=== PATIENT | male | born 1955 | race Caucasian/White ===

== ENCOUNTER 2018-11-14 11:17 | Outpatient (REF) | payer OTHER, SELFPAY ==
[2018-11-14 21:00] LABS: Anion Gap 10.2 mmol/L (3-11); BUN 17 mg/dL (7-18); CO2 25.8 mmol/L (21.0-32.0); CREATININE 0.89 mg/dL (0.70-1.30); Calcium 9.1 mg/dL (8.5-10.1); Chloride 103 mmol/L (98-107); Glucose 121 mg/dL (70-100); Potassium 4.8 mmol/L (3.5-5.1); Sodium 139 mmol/L (136-145)
== END 2018-11-14 11:37 ==
LOC: NCHCN 11:17
PROVIDERS: PCP Family Medicine; Visit Provider Specialist/Technologist Athletic Trainer
DX: I10 Essential (primary) hypertension (principal); F17.210 Nicotine dependence, cigarettes, uncomplicated; F10.99 Alcohol use, unspecified with unspecified alcohol-induced disorder
CPT/HCPCS: 80048

== ENCOUNTER 2020-01-23 12:41 | Outpatient (REF) | payer OTHER, SELFPAY ==
[2020-01-23 19:07] LABS: Anion Gap 7.2 mmol/L (3-11); BUN 24 mg/dL (7-18); CO2 26.8 mmol/L (21.0-32.0); CREATININE 0.96 mg/dL (0.70-1.30); Chloride 101 mmol/L (98-107); Glucose 131 mg/dL (74-106); Potassium 4.5 mmol/L (3.5-5.1); Sodium 135 mmol/L (136-145)
[2020-01-23 19:28] LABS: Hemoglobin A1C 5.9 % (3.8-5.6)
== END 2020-01-23 13:01 ==
LOC: NCHCN 12:41
PROVIDERS: PCP Family Medicine; Visit Provider Nurse Practitioner Family
DX: R73.03 Prediabetes (principal); I10 Essential (primary) hypertension; Z00.00 Encounter for general adult medical examination without abnormal findings
CPT/HCPCS: 80048; 83036

== ENCOUNTER 2023-05-20 05:13 | Emergency (ER) | payer MEDICARE, SELFPAY ==
[2023-05-20] VITALS (29 sets, daily range): BP systolic 128–177; BP diastolic 53–110; PULSE 69–98; RESP 8–31; TEMP 37; O2SAT 94–100
--- NOTE | 2023-05-20 05:00 | RT.EKG_ITS ---
APPROVED REPORT Exam: Resting ECG Reason for Exam: chest pain Patient Location: E HR:89 bpm ECG Measurements Heart Rate 89 AXIS NV 166 P 68 QRSd 78 QRS 59 QT 361 T 79 QTc 439 Conclusion Sinus rhythm...normal P axis, V-rate 60- 99 Physician: no stemi
--- NOTE | 2023-05-20 05:15 | DI.RAD_ITS ---
Exam(s) XR PORTABLE CHEST AP EXAM: XR PORTABLE CHEST AP CLINICAL HISTORY: chest discomfort TECHNIQUE: 2D digital imaging was performed of the chest. Two images were obtained. AP views were obtained. COMPARISON: No exams were available for comparison FINDINGS: MEDIASTINUM: Normal. HEART: Normal. PULMONARY VASCULATURE: Normal. LUNGS: Clear. PLEURAL SPACE: No pleural effusion or pneumothorax. BONE:Within normal limits for the patient's age. OTHER FINDINGS:Normal. IMPRESSION: No acute pulmonary findings. DATA REPOSITORY: RADIATION DOSE DELIVERED:
--- NOTE | 2023-05-20 05:26 | W.ED.GENAD ---
Discharge Plan Discharge Details Chief Complaint: Chest Pain Primary Care Provider: Sherice Hogan V ED Provider: Mike Velasquez Home Meds and New Rx's Prescriptions: No Action lisinopril 10 MG tablet 1 tab PO DAILY Medical Decision Making This is a 67-year-old male with a past medical history of hypertension, who smokes a pack per day for the last 50 years, with no known other medical history however he does not go see the doctor often, and he does not currently take his antihypertensive medications who presents today via EMS for evaluation of chest pain. Patient states that last night his chest and back felt a little achy, then at 1:30 AM he woke up and he had notable pain and pressure and heaviness in his chest and back that radiated to his right shoulder. It was nonexertional. No pleuritic component. No vomiting or diarrhea or headache. No tearing or ripping sensation. Pain was described as a 6 out of 10. He has never had symptoms like this before. He denies any previous cardiac etiologies. His father did have heart disease to his knowledge. No other complaints at this time. No other modifying factors. Exam demonstrates well-appearing male, no significant abnormalities. EKG shows no evidence of STEMI. Differential includes unstable angina, PE less likely. Dissection of concern but less likely. Pulses equal. Will evaluate for these concerning etiologies, given 1 nitroglycerin and aspirin, monitor closely and reassess. 7:33 AM Chest pain has resolved after breathing treatment. There was no change with nitroglycerin. This does raise a differential potential reactive airway disease. Patient feels well at this time. Initial work-up is normal, initial EKG stable, troponin normal, D-dimer normal, chest x-ray negative for acute process. Symptoms at this time clinically inconsistent for PE, dissection, or severe ACS. Pending repeat troponin. Patient will be signed out to my colleague Dr. Jeffery Cho for follow-up on repeat Trop and reassessment. proBNP is normal suggesting no evidence of heart strain from massive PE or CHF. FINDINGS: Lungs: Unremarkable. No consolidation. Pleural spaces: Unremarkable. No pleural effusion. No pneumothorax. Heart/Mediastinum: Unremarkable. No cardiomegaly. Bones/joints: Unremarkable. IMPRESSION: No acute findings. Thank you for allowing us to participate in the care of your patient. Dictated and Authenticated by: Ezequiel Neal MD 05/20/2023 6:50 AM Eastern Time ([place] & [place]) HPI General Date/Time Provider Initiated Documentation: 05/20/23 05:20. HPI Narrative: This is a 67-year-old male with a past medical history of hypertension, who smokes a pack per day for the last 50 years, with no known other medical history however he does not go see the doctor often, and he does not currently take his antihypertensive medications who presents today via EMS for evaluation of chest pain. Patient states that last night his chest and back felt a little achy, then at 1:30 AM he woke up and he had notable pain and pressure and heaviness in his chest and back that radiated to his right shoulder. It was nonexertional. No pleuritic component. No vomiting or diarrhea or headache. No tearing or ripping sensation. Pain was described as a 6 out of 10. He has never had symptoms like this before. He denies any previous cardiac etiologies. His father did have heart disease to his knowledge. No other complaints at this time. No other modifying factors. Related Data Home Medications Medication Instructions Recorded Confirmed lisinopril 10 mg tablet 1 tab PO DAILY 03/20/15 05/20/23 Allergies Allergy/AdvReac Type Severity Reaction Status Date / Time No Known Allergies Allergy Unverified 05/20/23 06:02 General Stated Complaint: Chest Pain LILIBETH: 2 Review of Systems All systems reviewed & are unremarkable except as noted in HPI and below [facility] Social History Smoking/Tobacco Use Status: Current every day Smoking risk assessment performed?: Yes Drug use: Never Exam Narrative Exam Narrative: 1.Const: Well-nourished, Well-developed, appearing stated age 2.Eyes: PERRL, no conjunctival injection, and symmetrical lids. 3.ENT: Atraumatic external nose and ears. Moist MM. Neck: Symmetric, trachea midline, No thyromegaly. 4.CVS: +S1/S2, No murmurs or gallops. Peripheral pulses 2+ and equal in all extremities. Brisk capillary refill in all extremities. 5.RESP: Unlabored respiratory effort. Clear to auscultation bilaterally. No wheezes rales or rhonchi 6.GI: Soft, Nontender/Nondistended, No hepatosplenomegaly. No guarding or rebound. 7.MSK: Normocephalic/Atraumatic, Extremities w/o deformity or ttp No cyanosis or clubbing, Normal movement of all extremities 8.Skin: Warm, Dry. No rashes or lesions. 9.Neuro: straddle bug driver II-XII grossly intact. Sensation grossly intact, no focal neurologic deficits. 10.Psych: (AAO) x3. Appropriate mood and affect Course Vital Signs Vital signs: Vital Signs Temperature 37.0 C 05/20/23 05:15 Pulse 98 H 05/20/23 05:15 Respiratory Rate 16 05/20/23 05:15 Blood Pressure 177/73 H 05/20/23 05:15 Temperature 37.0 C 05/20/23 05:15 Pulse 98 H 05/20/23 05:15 Respiratory Rate 16 05/20/23 05:15 Respiratory Effort Normal 05/20/23 05:15 Blood Pressure 177/73 H 05/20/23 05:15 Blood Pressure Position Supine 05/20/23 05:15 Pain Level 6 05/20/23 05:15
[2023-05-20 05:31] LABS: Abs Immature Grans 0.05 10^3/uL (0.0-0.06); Absolute Basophil Count 0.04 10^3/uL (0.0-0.2); Absolute Eosinophil Count 0.02 10^3/uL (0.0-0.7); Absolute Lymphocyte Count 0.92 10^3/uL (1.2-3.4); Absolute Monocyte Count 1.35 10^3/uL (0.1-0.8); Absolute Neutrophil Count 8.74 10^3/uL (1.2-6.7); Basophils % 0.4; Eosinophils % 0.2; HCT 49.1 % (40.0-50.0); Immature Grans % 0.4; Lymphocytes % 8.3; MCH 32.3 pg (27.0-33.0); MCHC 34.6 % (32.0-36.0); MCV 93 fL (80-95); MPV 9.3 fL (8.0-11.0); Monocytes % 12.1; Neutrophils % 78.6; Platelet Count 216 10^3/uL (130-400); RBC 5.26 10^6/uL (4.36-5.78); RDW 12.8 % (11.8-14.1); RDW-SD 43.9 fL; WBC 11.12 10^3/uL (4.4-10.8)
[2023-05-20] MEDS: Aspirin 81 MG CHEW 324 MG CH (05:32)
[2023-05-20] MEDS: nitroGLYcerin 0.4 MG TAB SL (05:32)
[2023-05-20] MEDS: Albuterol/Ipratropium 3 ML UPD VIAL UPD (05:42)
[2023-05-20 05:54] LABS: ALT 42 U/L (16-63); AST 19 U/L (15-37); Albumin 4.1 g/dL (3.4-5.0); Alkaline Phosphatase 78 U/L (46-116); Anion Gap 7.5 mmol/L (3-11); BUN 9 mg/dL (7-18); CO2 28.5 mmol/L (21.0-32.0); Calcium 9.3 mg/dL (8.5-10.1); Chloride 101 mmol/L (98-107); Estimated GFR 83.01 (mL/min/1.73m2); Glucose 154 mg/dL (74-106); Magnesium 1.9 mg/dL (1.8-2.4); NT-proBNP 254 pg/mL (<300); Potassium 4.4 mmol/L (3.5-5.1); Sodium 137 mmol/L (136-145); Total Protein 7.2 g/dL (6.4-8.2); Troponin I < 50 ng/L (<or=60)
[2023-05-20 06:24] LABS: D-Dimer 434 ng/mlFEU (<500)
[2023-05-20 06:31] LABS: INR 0.9 (0.9-1.1); PTT Activated 22.7 sec (21.5-31.9); Prothrombin Time 9.4 sec (9.3-11.0)
--- NOTE | 2023-05-20 06:50 | DI.VRAD_ITS ---
PROCEDURE INFORMATION: Exam: XR Chest Exam date and time: 05/20/2023 5:40 AM Age: 67 years old Clinical indication: Pain; Chest pressure TECHNIQUE: Imaging protocol: Radiologic exam of the chest. Views: 1 view. COMPARISON: No relevant prior studies available. FINDINGS: Lungs: Unremarkable. No consolidation. Pleural spaces: Unremarkable. No pleural effusion. No pneumothorax. Heart/Mediastinum: Unremarkable. No cardiomegaly. Bones/joints: Unremarkable. IMPRESSION: No acute findings. Dictated and Authenticated by: Ezequiel Neal MD. Ordering:MICHAEL Mckeon MD
--- NOTE | 2023-05-20 07:15 | NUR.NOTE ---
Nursing Note: this RN took over care of patient. PT LS clear, denies CP at this time. Call light within reach of patient.
[2023-05-20 08:43] LABS: Troponin I < 50 ng/L (<or=60)
--- NOTE | 2023-05-20 09:19 | W.EDPROG ---
Date of service: 05/20/23 Time of Service: 09:19 Medical Decision Making Patient resting comfortably no acute distress, 2 troponin negative. Hemodynamically stable. Patient to follow-up closely with primary care physician. Home care instructions and return precautions given Sign Out Sign Out Data: Sign Out Comment: Chest pain at rest. Pending repeat Trope. Last updated by Mike Velasquez DO at 05/20/23 07:37 Discharge Plan Disposition Patient Disposition: Home Condition: Improving Discharge Details Chief Complaint: Chest Pain Clinical Impression: Chest pain Primary Care Provider: Sherice Hogan V ED Provider: Darren Joseph Home Meds and New Rx's Prescriptions: No Action lisinopril 10 MG tablet 1 tab PO DAILY Discharge Instructions Instructions: Chest Pain (ED) Additional Instructions: Please follow-up close with your primary care physician. Please return to the emergency department for any worsening symptom
[2023-05-20] MEDS: Albuterol HFA 8 GM 60 PUFF INH IH (09:31)
[2023-05-20] MEDS: Inhaler, Assist Device 1 EACH MC (09:32)
== END 2023-05-20 09:33 | disposition home or self-care (01) ==
PROVIDERS: Student in an Organized Health Care Education/Training Program; Emergency Provider Emergency Medicine; PCP Family Medicine
DX: R07.9 Chest pain, unspecified (principal); F17.210 Nicotine dependence, cigarettes, uncomplicated; I10 Essential (primary) hypertension; R06.02 Shortness of breath
CPT/HCPCS: 36415; 80053; 93005; 94640; 99284; 71045; 83735; 83880; 84484; 85025; 85379; 85610; 85730; 93010; J7620

== ENCOUNTER 2023-06-05 13:33 | Outpatient (REF) | payer MEDICARE, SELFPAY ==
[2023-06-05 15:58] LABS: HCT 48.8 % (40.0-50.0); HGB 16.5 g/dL (13.5-17.5); MCHC 33.8 % (32.0-36.0); MCV 95 fL (80-95); MPV 9.2 fL (8.0-11.0); Platelet Count 317 10^3/uL (130-400); RBC 5.15 10^6/uL (4.36-5.78); RDW 12.5 % (11.8-14.1); RDW-SD 43.9 fL; WBC 7.29 10^3/uL (4.4-10.8)
[2023-06-05 17:04] LABS: ALT 44 U/L (16-63); AST 20 U/L (15-37); Albumin 3.9 g/dL (3.4-5.0); Alkaline Phosphatase 81 U/L (46-116); Anion Gap 9.8 mmol/L (3-11); BUN 16 mg/dL (7-18); Bilirubin, Total 0.5 mg/dL (0.2-1.0); CO2 27.2 mmol/L (21.0-32.0); CREATININE 0.9 mg/dL (0.70-1.30); Calcium 9.4 mg/dL (8.5-10.1); Calculated LDL 109 mg/dL (<100); Chloride 103 mmol/L (98-107); Cholesterol 196 mg/dL (<200); Estimated GFR 94.19 (mL/min/1.73m2); Glucose 164 mg/dL (74-106); HDL Cholesterol 76 mg/dL (40-60); Potassium 4.5 mmol/L (3.5-5.1); Sodium 140 mmol/L (136-145); Total Protein 6.9 g/dL (6.4-8.2); Triglyceride 57 mg/dL (<150); Vitamin B12 331 pg/mL (193-986)
[2023-06-05 17:20] LABS: Hemoglobin A1C 5.6 % (<5.7)
== END 2023-06-05 13:34 | disposition home or self-care (01) ==
LOC: NCHCN 13:33
PROVIDERS: PCP Family Medicine; Visit Provider Nurse Practitioner Family
DX: I10 Essential (primary) hypertension (principal); Z00.00 Encounter for general adult medical examination without abnormal findings
CPT/HCPCS: 80053; 80061; 85027; 82607; 83036

== ENCOUNTER 2024-03-21 12:55 | Outpatient (REF) | payer MEDICARE, SELFPAY ==
[2024-03-21 15:25] LABS: Abs Immature Grans 0.01 10^3/uL (0.0-0.06); Absolute Basophil Count 0.05 10^3/uL (0.0-0.2); Absolute Eosinophil Count 0.15 10^3/uL (0.0-0.7); Absolute Lymphocyte Count 1.19 10^3/uL (1.2-3.4); Absolute Monocyte Count 0.54 10^3/uL (0.1-0.8); Absolute Neutrophil Count 5.07 10^3/uL (1.2-6.7); Basophils % 0.7 %; Eosinophils % 2.1 %; HCT 46.2 % (40.0-50.0); Immature Grans % 0.1 %; MCH 32.7 pg (27.0-33.0); MCHC 34.6 % (32.0-36.0); MCV 95 fL (80-95); MPV 9.5 fL (8.0-11.0); Monocytes % 7.7 %; Neutrophils % 72.4 %; Platelet Count 235 10^3/uL (130-400); RBC 4.89 10^6/uL (4.36-5.78); RDW 12.5 % (11.8-14.1); RDW-SD 43.5 fL; WBC 7.01 10^3/uL (4.4-10.8)
[2024-03-21 16:23] LABS: ALT 40 U/L (16-63); AST 25 U/L (15-37); Alkaline Phosphatase 63 U/L (46-116); Anion Gap 10.3 mmol/L (3-11); BUN 9 mg/dL (7-18); Bilirubin, Total 0.53 mg/dL (0.2-1.0); CO2 25.7 mmol/L (21.0-32.0); CREATININE 0.9 mg/dL (0.70-1.30); Calcium 9.2 mg/dL (8.5-10.1); Chloride 103 mmol/L (98-107); Estimated GFR 93.61 (mL/min/1.73m2); Glucose 132 mg/dL (74-106); Magnesium 2.1 mg/dL (1.8-2.4); Potassium 4.4 mmol/L (3.5-5.1); Sodium 139 mmol/L (136-145); Total Protein 6.8 g/dL (6.4-8.2); Vitamin D 25 Total 35.1 ng/mL (30-100)
[2024-03-21 16:48] LABS: Calculated LDL 65 mg/dL (<100); Cholesterol 159 mg/dL (<200); HDL Cholesterol 86 mg/dL (40-60); Triglyceride 41 mg/dL (<150)
[2024-03-21 23:07] LABS: PSA, Screening 0.6 ng/mL (<=4.5)
== END 2024-03-21 12:56 | disposition home or self-care (01) ==
LOC: NCHCN 12:55
PROVIDERS: PCP Family Medicine; Visit Provider Nurse Practitioner Family
DX: I10 Essential (primary) hypertension (principal); Z12.5 Encounter for screening for malignant neoplasm of prostate; R73.09 Other abnormal glucose; Z79.899 Other long term (current) drug therapy
CPT/HCPCS: 80053; 80061; 82306; 84153; 83735; 85025

== ENCOUNTER 2025-03-20 14:49 | Outpatient (REF) | payer MEDICARE, SELFPAY ==
[2025-03-20 15:46] LABS: Hemoglobin A1C 5.3 % (<5.7)
[2025-03-20 15:59] LABS: Anion Gap 9.4 mmol/L (3-11); BUN 14 mg/dL (7-18); CO2 28.6 mmol/L (21.0-32.0); Calcium 9.4 mg/dL (8.5-10.1); Chloride 101 mmol/L (98-107); Estimated GFR 81.98 (mL/min/1.73m2); Glucose 187 mg/dL (74-106); Potassium 4.8 mmol/L (3.5-5.1); Sodium 139 mmol/L (136-145)
[2025-03-21 13:39] LABS: Hepatitis C Ab w Rflx HCV PCR Negative (Negative)
== END 2025-03-20 14:50 | disposition home or self-care (01) ==
LOC: NCHCN 14:49
PROVIDERS: PCP Family Medicine; Visit Provider Nurse Practitioner Family
DX: R73.03 Prediabetes (principal); I10 Essential (primary) hypertension; Z00.00 Encounter for general adult medical examination without abnormal findings
CPT/HCPCS: 80048; 86803; 83036